=== PATIENT | female | born 1940 | race Caucasian/White ===

== ENCOUNTER 2020-03-02 07:50 | Inpatient (IN) | payer MEDICARE ==
[~2020-03-02] VITALS: Ht 167.6 cm; Wt 72.9 kg
[2020-03-02] MEDS ORDERED: LIVA2TAB PO (08:10)
[2020-03-02] MEDS ORDERED: SYMB80INH INH (08:10)
[2020-03-02] MEDS ORDERED: SPIR1CAP INH (08:10)
[2020-03-02] MEDS ORDERED: MONT5TAB2 PO (08:10)
[2020-03-02 08:47] LABS: BASO % 0.3 % (0.0-1.0); EOS # 0.1 10^3/uL (0.0-0.5); EOS % 0.7 % (0.0-3.0); HEMATOCRIT 47.3 % (36.0-47.0); HEMOGLOBIN 14.7 g/dl (12.0-15.5); LYMPH % 9.5 % (24.0-44.0); MEAN CORPUSCULAR HEMOGLOBIN 29.4 pg (27.0-33.0); MEAN CORPUSCULAR HGB CONC 31.1 g/dl (32.0-36.5); MEAN CORPUSCULAR VOLUME 94.6 fl (80.0-96.0); MONO # 0.8 10^3/uL (0.0-0.8); MONO % 8.2 % (0.0-5.0); NEUTROPHILS % 80.8 % (36.0-66.0); PLATELET COUNT, AUTOMATED 195 10^3/uL (150-450)
[2020-03-02] MEDS: OYSTER SHELL CALCIUM 500 MG TAB PO SCH (09:00)
[2020-03-02] MEDS: ENOXAPARIN 40MG/0.4ML SYRINGE (J1650 PER 10MG) SC SCH (09:00)
--- OUTSIDE RECORDS SUMMARY | 2020-03-02 09:13 | CCD ---
Author Author [facility] Address Unknown Phone Unavailable Support Name Relationship Address Phone RE Next Of Kin Unknown Unavailable Re-disclosure Warning The records that you are about to access may contain information from federally-assisted alcohol or drug abuse programs. If such information is present, then the following federally mandated warning applies: This information has been disclosed to you from records protected by federal confidentiality rules (42 CFR part 2). The federal rules prohibit you from making any further disclosure of this information unless further disclosure is expressly permitted by the written consent of the person to whom it pertains or as otherwise permitted by 42 CFR part 2. A general authorization for the release of medical or other information is NOT sufficient for this purpose. The Federal rules restrict any use of the information to criminally investigate or prosecute any alcohol or drug abuse patient.The records that you are about to access may contain highly sensitive health information, the redisclosure of which is protected by Article 27-F of the [facility] Public Health law. If you continue you may have access to information: Regarding HIV / AIDS; Provided by facilities licensed or operated by the [facility] Office of Mental Health; or Provided by the [facility] Office for People With Developmental Disabilities. If such information is present, then the following [facility] mandated warning applies: This information has been disclosed to you from confidential records which are protected by state law. State law prohibits you from making any further disclosure of this information without the specific written consent of the person to whom it pertains, or as otherwise permitted by law. Any unauthorized further disclosure in violation of state law may result in a fine or halfway sentence or both. A general authorization for the release of medical or other information is NOT sufficient authorization for further disc losure. Insurance Providers Payer name Policy type / Coverage type Policy ID Covered green party ID Covered green party's relationship to p[place] Policy [place] Plan Information MEDICARE BLUE O 306 [id number] SP [id number] [facility] OPTIONS [id number] SP [id number] MEDICARE [id number] SP [id number] B
[2020-03-02] MEDS ORDERED: ISOVUE-370 76% 100ML VIAL As Ordered ONE (09:18)
--- NOTE | 2020-03-02 09:42 | REPVR ---
PROCEDURE INFORMATION: Exam: CT Maxillofacial With Contrast Exam date and time: 03/02/2020 8:26 AM Age: 79 years old Clinical indication: Other: L ear/mastoid area red/hot/swollen TECHNIQUE: Imaging protocol: Computed tomography images of the face with intravenous contrast. Radiation optimization: All CT scans at this facility use at least one of these dose optimization techniques: automated exposure control; mA and/or kV adjustment per patient size (includes targeted exams where dose is matched to clinical indication); or iterative reconstruction. Contrast material: ISOVUE 370; Contrast volume: 75 ml; Contrast route: INTRAVENOUS (IV); COMPARISON: No relevant prior studies available. FINDINGS: Orbital cavity: Orbits are normal. Globes are unremarkable. Bones/joints: No acute fracture. Paranasal sinuses: Normal. No air-fluid levels. Mastoid air cells: Bilateral mastoid air cells are clear. Auditory system: External ear cavity and middle ear cavity are unremarkable. Ossicles are intact. Soft tissues: Asymmetrical enhancement and swelling of the left external pinna. Inflammation is extending up to the left parotid gland as described above. Brain: Intracranial contents are unremarkable. Submandibular/Parotid glands: Asymmetrical asymmetrical abnormal enhancement of the left parotid gland with mild surrounding inflammation and soft tissue swelling. IMPRESSION: Asymmetrical enhancement and swelling of the left external pinna. Inflammation is extending up to the left parotid gland as described above. Asymmetrical asymmetrical abnormal enhancement of the left parotid gland with mild surrounding inflammation and soft tissue swelling. Findings may represent inflammation of the external ear extending up to the parotid gland are parotiditis extending up to the left pinna. Clinical correlation is recommended. Electronically signed by: Mckayla Huitron On 03/02/2020 09:41:53 AM
[2020-03-02] MEDS ORDERED: dexameTHASONE 4 MG/ML 1ML VIAL (J1100 PER 1MG) As Ordered ONE ×2 (10:11→10:12)
[2020-03-02 10:12] LABS: ERYTHROCYTE SEDIMENTATION RATE 8 mm/hr (0-30)
[2020-03-02] MEDS ORDERED: UNASYN 3 GM VIAL As Ordered ONE (10:20)
[2020-03-02] MEDS ORDERED: cefTRIAXone SOD 1GM VIAL (J0696 PER 250MG) As Ordered ONE (10:28)
[2020-03-02] MEDS ORDERED: MUCI600T31 PO (11:27)
[2020-03-02] MEDS ORDERED: EQL50TAB2 PO (11:27)
[2020-03-02] MEDS ORDERED: VITA400C53 PO (11:27)
[2020-03-02] MEDS ORDERED: C 50TAB PO (11:27)
[2020-03-02] MEDS ORDERED: OYST1TAB PO (11:27)
[2020-03-02] MEDS ORDERED: MULT-40 PO (11:27)
[2020-03-02] MEDS ORDERED: ACETAMINOPHEN TAB 650MG DOSE (2X325MG) PO PRN (11:30)
--- OUTSIDE RECORDS SUMMARY | 2020-03-02 11:42 | CCD ---
Author Author [facility] Address Unknown Phone Unavailable Support Name [...] is protected by Article 27-F of the [facility] Public Health law. If you continue you may have access to information: Regarding HIV / AIDS; Provided by facilities licensed or operated by the [facility] Office of Mental Health; or Provided by the [facility] Office for People With Developmental Disabilities. If such information is present, then the following [facility] mandated warning applies: This information has [...] law may result in a fine or half-way sentence or both. A general authorization for the release of medical or other information is NOT sufficient authorization for further disc losure. Insurance Providers Payer name Policy type / Coverage type Policy ID Covered democrat ID Covered democrat's relationship to pittman Policy [place] Plan Information MEDICARE BLUE O 306 [id number] SP [id number] [facility] C[facility] OPTIONS [id number] SP [id number] MEDICARE [id number] SP [id number] B
[2020-03-02] MEDS ORDERED: guaiFENesin ER 600 MG TAB PO PRN (11:45)
--- NOTE | 2020-03-02 11:58 | HPEPDOC ---
General Date of Admission Mar 02, 2020 at 11:24 Date of Service: Mar 02, 2020 Chief Complaint The patient is a 79-year-old female admitted with a reason for visit of Cellulitis. Source: Patient Exam Limitations: No limitations Timing/Duration: 4-6 hours History of Present Illness Patient is 79 years old female with past history of COPD presented hospital with L ear redness and swelling. Patient stated that it's her 3d episode of left ear swelling. 2 previous one was in October and November patient received treatment with different antibiotics : meropenem, vancomycin, clindamycin, ceftriaxone with positive effect. Today patient woke up with ear swelling, she denied ear pain. She stated that she has itchiness around ear and hair loss for past few months In ER patient was found to have white blood count of 10, C-reactive protein 2.2. CT was done and showed Asymmetrical enhancement and swelling of the left external pinna. Inflammation is extending up to the left parotid gland as described above. Asymmetrical asymmetrical abnormal enhancement of the left parotid gland with mild surrounding inflammation and soft tissue swelling. Findings may represent inflammation of the external ear extending up to the parotid gland are parotiditis extending up to the left pinna. Patient denied any shortness of breath, fever or difficulty swallowing Home Medications Scheduled Ascorbic Acid (Vitamin C) 500 Mg Tablet, 500 MG PO DAILY, (Reported) Budesonide/Formoterol (Symbicort 80-4.5 Mcg Inhaler) 6.9 Gm Hfa.aer.ad, 2 PUFFS INH BID, (Reported) Calcium Carbonate (Calcium) 500 Mg Tablet, 500 MG PO DAILY, (Reported) Montelukast Sodium (Montelukast Sodium) 10 Mg Tablet, 10 MG PO QHS, (Reported) Multivitamin (Multivitamins) 1 Each Tablet, 1 TAB PO DAILY, (Reported) Pitavastatin Calcium (Livalo) 2 Mg Tablet, 2 MG PO QHS, (Reported) Tiotropium [place] (Spiriva) 18 Mcg Cap.w.dev, 18 MCG INH DAILY, (Reported) Vitamin B Complex (Vitamin B Complex) 1 Each Tablet, 1 TAB PO DAILY, (Reported) Vitamin E (Vitamin E) 400 Unit Capsule, 400 UNIT PO DAILY, (Reported) Scheduled PRN Guaifenesin (Mucinex) 600 Mg Tab.er.12h, 600 MG PO BID PRN for COUGH\, (Reported) Allergies Coded Allergies: Penicillins (Verified Allergy, Intermediate, Hives, 03/02/20) Past Medical History Medical History COPD Family History Father from cancer Mother from heart attack Social History * Smoker: former Smoker Alcohol: Denies Drugs: denies A-FIB/CHADSVASC A-FIB History Current/History of A-Fib/PAF?: No Current PO Anticoag Therapy: No Review of Systems Eyes: Denies: Pain ENT: Reports: Other Symptoms (left ear swelling) Skin: Denies: Rash, Jaundice Pulmonary: Denies: Dyspnea Gastrointestinal: Denies: Nausea, Vomiting Genitourinary: Denies: Frequency Hematologic: Denies: Bruising Endocrine: Denies: Polydipsia Musculoskeletal: Denies: Neck Pain Neurological: Denies: Weakness, Numbness Psych: Reports: Mood Normal Physical Examination General Exam: Positive: Alert, Cooperative Eye Exam: Positive: PERRLA ENT Exam: Positive: Atraumatic, Pinna Normal (left pinna swollen) Neck Exam: Negative: Supple, JVD Chest Exam: Positive: Clear to auscultation Heart Exam: Positive: Rate Normal Telemetry: Positive: No significant arrhythmia Abdomen Exam: Positive: Normal bowel sounds Extremity Exam: Negative: Clubbing, Cyanosis Skin Exam: Positive: Nl turgor and temperature Neuro Exam: Positive: Normal Gait, Strength at 5/5 X4 ext Psych Exam: Positive: Mental status NL Vital Signs Vital Signs Date Time Temp Pulse Resp B/P (MAP) Pulse Ox O2 Delivery O2 Flow Rate FiO2 03/02/20 10:54 99.5 03/02/20 08:24 03/02/20 07:51 92 18 95 Room Air Laboratory Data Labs 24H Laboratory Tests 2 03/02/20 08:34: Immature Granulocyte % (Auto) 0.5, Neutrophils (%) (Auto) 80.8H, Lymphocytes (%) (Auto) 9.5L, Monocytes (%) (Auto) 8.2H, Eosinophils (%) (Auto) 0.7, Basophils (%) (Auto) 0.3, Neutrophils # (Auto) 8.0, Lymphocytes # (Auto) 1.0L, Monocytes # (Auto) 0.8, Eosinophils # (Auto) 0.1, Basophils # (Auto) 0.0, Nucleated Red Blood Cells % (auto) 0.0, Erythrocyte Sedimentation Rate 8, C-Reactive Protein, Quantitative 2.21H 1/14/21 08:41: POC Glucose (Misc Panel) 107H, POC Sodium (Misc Panel) 141, POC Potassium (Misc Panel) 4.5, POC Chloride (Misc Panel) 101, POC Total CO2 (Misc Panel) 33.0H, POC Blood Urea Nitrogen (Misc Panel 17, POC Ionized Calcium (Misc Panel) 4.7, POC Creatinine (Misc Panel) 1.1, POC Hematocrit (Misc Panel) 47.0 CBC/BMP Laboratory Tests 03/02/20 08:34 Microbiology Microbiology 03/02/20 Blood Culture, Received Pending 03/02/20 Blood Culture, Received Pending 03/02/20 Respiratory Virus Panel (PCR) (SANDER), Received Pending Assessment/Plan Patient is 79 years old female with past history of COPD presented hospital with L ear redness and swelling. Patient stated that it's her 3d episode of left ear swelling. 2 previous one was in October and November patient received treatment with different antibiotics : meropenem, vancomycin, clindamycin, ceftr iaxone with positive effect. Today patient woke up with ear swelling, she denied ear pain. In ER patient was found to have white blood count of 10, C-reactive protein 2.2. CT was done and showed Asymmetrical enhancement and swelling of the left external pinna. Inflammation is extending up to the left parotid gland as described above. Asymmetrical asymmetrical abnormal enhancement of the left paro tid gland with mild surrounding inflammation and soft tissue swelling. Findings may represent inflammation of the external ear extending up to the parotid gland are parotiditis extending up to the left pinna. Patient denied any shortness of breath, fever or difficulty swallowing Problems (1) Cellulitis Status: Acute Problem Text: Left ear cellulitis Differential diagnoses includes bacterial infection versus fungal infection versus autoimmune diseases which is unlikely. Usually relapsing polychondritis bilateral I will start him empirically cefazolin IV Appreciate/agree with ID consult (2) COPD (chronic obstructive pulmonary disease) Status: Chronic Problem Text: No any acute exacerbation continue inhalers Plan / VTE VTE Prophylaxis Ordered?: Yes CHERELLE GU DO Mar 02, 2020 11:57
[2020-03-02] MEDS ORDERED: metroNIDAZOLE/NACL 500MG(5MG/ML) 100ML BAG (S0030) As Ordered ONE (11:59)
[2020-03-02] MEDS ORDERED: ceFAZolin SOD 1 GM in D5W MINI-BAG PLUS 50 ML IV SCH ×2 (14:00→17:00)
[2020-03-02 15:45] VITALS: BP 161/86
[2020-03-02] MEDS ORDERED: predniSONE 20 MG TAB PO ONE (17:00)
[2020-03-02] MEDS ORDERED: MONTELUKAST 10 MG TAB PO SCH (21:00)
[2020-03-02] MEDS ORDERED: SYMBICORT 80/4.5MCG INHALER 6GM INH SCH (21:00)
[2020-03-02] MEDS: SYMBICORT 80/4.5MCG INHALER 6GM INH SCH (21:22)
[2020-03-02 21:45] VITALS: BP 147/88
[2020-03-03 05:29] VITALS: BP 146/88
[2020-03-03 06:25] LABS: HEMATOCRIT 44.6 % (36.0-47.0); HEMOGLOBIN 13.8 g/dl (12.0-15.5); MEAN CORPUSCULAR HGB CONC 30.9 g/dl (32.0-36.5); MEAN CORPUSCULAR VOLUME 93.7 fl (80.0-96.0); PLATELET COUNT, AUTOMATED 212 10^3/uL (150-450); RED BLOOD COUNT 4.76 10^6/uL (4.00-5.40); WHITE BLOOD COUNT 13.4 10^3/uL (4.0-10.0)
[2020-03-03 06:52] LABS: RHEUMATOID FACTOR QUANT 13.6 IU/ML (<15.0)
[2020-03-03 06:55] LABS: ALBUMIN 3.3 GM/DL (3.2-5.2); BILIRUBIN,TOTAL 0.5 MG/DL (0.2-1.0); CALCIUM LEVEL 9.3 MG/DL (8.8-10.2); CREATININE FOR GFR 1.19 MG/DL (0.55-1.30); GLOMERULAR FILTRATION RATE 46.8 (>39); MAGNESIUM LEVEL 2.2 MG/DL (1.8-2.4); POTASSIUM SERUM 4.3 MEQ/L (3.5-5.1); TOTAL PROTEIN 6.8 GM/DL (6.4-8.2)
[2020-03-03] MEDS: SYMBICORT 80/4.5MCG INHALER 6GM INH SCH (07:53)
[2020-03-03] MEDS ORDERED: TIOTROPIUM INHALER/CAPSULE (SPIRIVA) INH SCH (08:00)
[2020-03-03] MEDS: ENOXAPARIN 40MG/0.4ML SYRINGE (J1650 PER 10MG) SC SCH (09:00)
[2020-03-03] MEDS: OYSTER SHELL CALCIUM 500 MG TAB PO SCH (09:21)
[2020-03-03 09:25] LABS: FREE T4 0.81 NG/DL (0.76-1.46); THYROID STIMULATING HORMONE 0.866 uIU/ML (0.358-3.740)
--- NOTE | 2020-03-03 12:10 | IPN ---
PROGRESS NOTE DATE: 03/03/2020 SUBJECTIVE: Sindhu is feeling good today. She has no complaints. No nausea, vomiting, or diarrhea. No fever or chills. No pain in her ear. She gives me a history of hair loss since this summer, itching of the scalp, rhinorrhea, and some sneezing. She denies ear pain or ear discharge. She never had a fever with these recurrent episodes. OBJECTIVE: VITAL SIGNS: Temperature is 97.9, pulse 76, respirations 18, blood pressure 146/88, O2 saturation 93% on room air. HEENT: Left ear pinna slightly erythematous and swollen, but less than yesterday. No tenderness. No discharge. Mild erythema of the cheek as well. Looking in the scope, there are a few patchy areas that are erythema. Macules possibly psoriatic. HEART: Normal S1, S2, no murmurs. LUNGS: Clear, diminished. ABDOMEN: Soft and nontender. EXTREMITIES: No edema. Left pinky finger contractures. LABORATORY DATA: White count 13.4 has increased from 10 due to steroids, hemoglobin 13.8, hematocrit 44.6, platelets 212,000. ESR 8. Sodium 138, potassium 4.3, chloride 104, bicarb 27, BUN 21, creatinine 1.19, glucose 133, calcium 9.3, magnesium 2.2, bilirubin 0.5, AST 26, ALT 27, alkaline phosphatase 63, total protein 6.8, albumin 3.3. Rheumatoid factor 13.6. CCP pending. DIONISIO pending. T3 of 129, T4 of 25 normal. 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 The patient received prednisone 40 mg yesterday with some decreased swelling. 2. Hair loss. Will add thyroid studies. PLAN ;I would just suggest 20 mg daily for five days and referral to rheumatology. Discharge patient home on no antibiotics and referral [facility]
[2020-03-03] MEDS ORDERED: PRED20TA PO (12:52)
--- NOTE | 2020-03-03 14:39 | CR ---
INFECTIOUS DISEASE CONSULTATION DATE: 03/02/2020 CONSULTATION REQUESTED BY: Lev Mireles DO REASON FOR CONSULTATION: Evaluation of recurrent left ear swelling and redness. HISTORY OF PRESENT ILLNESS: Mrs. Harding is a 79-year-old female who presented to [facility] in October, November and February for the same complaint. The patient developed left ear swelling and redness. She has minimal pain. It is usually associated with some itching. It does not respond to topical treatments, and therefore she comes to the Emergency Room. The first episode, she was in for 48 hours from October 19 to . She was treated with I.V. Vancomycin and Ceftazidime for presumptive malignant otitis externa. The patient had associated elevated white count, CRP and sed rate on other admissions. This is the third admission, she presented with swelling. She does not have significant pain, no drainage. She has no significant joint pain except for small finger has developed a contraction over the thumb area, which she relates to knitting and having that finger in the same position all the time. She denies any shortness of breath, cough, fever, chills, night sweats or other complaints. She had noticed some visual problems, her glasses were not working as well. The first admission she had erythema involving all the way to the cheek and the eyes as well. PAST MEDICAL HISTORY: Significant for COPD, she quit smoking in 2010, mild hyperlipidemia. ALLERGIES: Allergy to penicillin. FAMILY HISTORY: Father of cancer. Mother of heart attack. SOCIAL HISTORY: She quit smoking in 2010. She does not smoke or drink. REVIEW OF SYSTEMS: No fever, chills, night sweats. No cough or shortness of breath. No nausea, vomiting or diarrhea. No frequency or hematuria. No other joint pains except her fingers. Denies any respiratory issues, other than her chronic shortness of breath. MEDICATIONS: 1. Spiriva one inhalation daily. 2. Montelukast 10 mg p.o. q.h.s. 3. Symbicort two puffs inhaled b.i.d. 4. Chlorphenesin 600 mg b.i.d. p.r.n. 5. Tylenol p.r.n. 6. Cefazolin 1 gram I.V. every 8 hours. 7. Calcium carbonate 500 mg p.o. daily. 8. Enoxaparin 40 mg subcutaneously daily. PHYSICAL EXAMINATION: GENERAL: She is a healthy looking female, in no acute distress. VITAL SIGNS: Temperature 97.3, pulse 99, respirations 18, blood pressure 161/86, O2 sat 96% on room air. HEART: Normal S1, S2. No murmurs, rubs or gallops. LUNGS: Clear. No wheezes, rales or rhonchi. ABDOMEN: Soft, nontender. No hepatosplenomegaly. BACK: No CVA or lumbosacral tenderness. EXTREMITIES: No cyanosis, clubbing or edema. No calf tenderness. JOINTS: She has some [place] and Bouchards nodes on the second and third finger. Left pinky finger is contracted. She is not able to extend it, but nontender. HEENT: Oropharynx is clear with no thrush. Nose normal. Left ear pinna is erythematous, warm, not tender to touch, slightly torn pinna. No facial involvement. Sclerae slightly erythematous and slight swelling around the eyes. IMAGING STUDIES: Maxillofacial CT showed asymmetrical enhancement and swelling of the left external pinna, dissymmetric abnormal enhancement of the left parotid gland with no surrounding inflammation or swelling. IMPRESSION: This is a 79-year-old pleasant female with only history of COPD, who presents with a third episode of swollen left ear pinna with some itching. Each episode has lasted about 5 to 7 days. She was treated with antibiotics while she was in the hospital for cellulitis. I just hope this is relapsing polychondritis and not cellulitis. She never has an associated fever, drainage or pain. She does have elevated white count, CRP and sed rate usually. Sometimes relapsing polychondritis is associated with other autoimmune diseases, which will be ruled out, as well as myelodysplastic syndrome. PLAN: Discontinue I.V. Cefazolin. Prednisone 40 mg p.o. daily; see if that would help, then she could do on a tapering schedule. refer to rheumatology, obtain DIONISIO, rheumatoid factor, ANCA complement levels. This has been discussed with Dr. Mireles, who agrees with the plan. I do not see a need for her to be hospitalized. [facility]
--- NOTE | 2020-03-03 19:09 | DS.PDOC ---
Discharge Summary General Date of Admission Mar 02, 2020 at 11:24 Date of Discharge 03/03/20 Discharge Summary PROCEDURES PERFORMED DURING STAY: [None]. ADMITTING DIAGNOSES: COPD (chronic obstructive pulmonary disease) Cellulitis rule out DISCHARGE DIAGNOSES: Relapsing polychondritis COPD (chronic obstructive pulmonary disease) COMPLICATIONS/CHIEF COMPLAINT: Cellulitis. HISTORY OF PRESENT ILLNESS: : Mrs. Harding is a 79-year-old female who presented to [facility] in October, November and February for the same complaint. The patient developed left ear swelling and redness. She has minimal pain. It is usually associated with some itching. It does not respond to topical treatments, and therefore she comes to the Emergency Room. The first episode, she was in for 48 hours from October 19 to . She was treated with I.V. Vancomycin and Ceftazidime for presumptive malignant otitis externa. The patient had associated elevated white count, CRP and sed rate on other admissions. This is the third admission, she presented with swelling. She does not have significant pain, no drainage. She has no significant joint pain except for small finger has developed a contraction over the thumb area, which she relates to knitting and having that finger in the same position all the time. She denies any shortness of breath, cough, fever, chills, night sweats or other complaints. She had noticed some visual problems, her glasses were not working as well. The first admission she had erythema involving all the way to the cheek and the eyes as well. HOSPITAL COURSE: During hospital stay the following issues addressed Patient was diagnosed with relapsing perichondritis, received steroids with positive effect DISCHARGE MEDICATIONS: Please see below. ALLERGIES: Please see below. PHYSICAL EXAMINATION ON DISCHARGE: VITAL SIGNS: Please see below. VITAL SIGNS: Temperature 97.3, pulse 99, respirations 18, blood pressure 161/86, O2 sat 96% on room air. HEART: Normal S1, S2. No murmurs, rubs or gallops. LUNGS: Clear. No wheezes, rales or rhonchi. ABDOMEN: Soft, nontender. No hepatosplenomegaly. BACK: No CVA or lumbosacral tenderness. EXTREMITIES: No cyanosis, clubbing or edema. No calf tenderness. JOINTS: She has some ____edema and push out nodes on the second and third finger. Left pinky finger is contracted. She is not able to extend it, but nontender. HEENT: Oropharynx is clear with no thrush. Nose normal. Left ear pinna is erythematous, warm, not tender to touch, slightly torn pinna. No facial involvement. Sclerae slightly erythematous and slight swelling around the eyes. LABORATORY DATA: Please see below. IMAGING:: Maxillofacial CT showed dissymmetrical enhancement and swelling of the left external pinna, dissymmetric abnormal enhancement of the left parotid gland with no surrounding inflammation or swelling. PROGNOSIS: Fair ACTIVITY: [As tolerated]. DIET: Cardiac DISPOSITION: 01 Home, Self-Care. ITEMS TO FOLLOWUP ON ON OUTPATIENT: Follow-up with electrical automation engineer in 3-5 days DISCHARGE CONDITION: [Stable]. TIME SPENT ON DISCHARGE: Greater than 20 minutes. Vital Signs/I&Os Vital Signs Date Time Temp Pulse Resp B/P (MAP) Pulse Ox O2 Delivery O2 Flow Rate FiO2 03/03/20 05:29 97.9 76 18 146/88 (107) 93 Room Air I&O- Last 24 Hours up to 6 AM 03/03/20 05:59 Intake Total 1200 ml Output Total 1600 ml Balance -400 ml Laboratory Data Labs 24H Laboratory Tests 2 03/03/20 05:37: Nucleated Red Blood Cells % (auto) 0.0, Anion Gap 7L, Glomerular Filtration Rate 46.8, Calcium Level 9.3, Magnesium Level 2.2, Total Bilirubin 0.5, Aspartate Amino Transf (AST/SGOT) 26, Alanine Aminotransferase (ALT/SGPT) 27, Alkaline Phosphatase 63, Total Protein 6.8, Albumin 3.3, Albumin/Globulin Ratio 0.9L, Thyroid Stimulating Hormone (TSH) 0.866, Free Thyroxine 0.81, Rheumatoid Factor 13.6, Complement C3 129, Complement C4 25 03/03/20 10:17: Lab Scanned Report Miscellaneous Lab CBC/BMP Laboratory Tests 03/03/20 05:37 Microbiology Microbiology 03/02/20 Blood Culture - Preliminary, Resulted No growth after 24 hours . All specim... 03/02/20 Blood Culture - Preliminary, Resulted No growth after 24 hours . All specim... 03/02/20 Respiratory Virus Panel (PCR) (SANDER) - Final, Complete Discharge Medications Scheduled Ascorbic Acid (Vitamin C) 500 Mg Tablet, 500 MG PO DAILY, (Reported) Budesonide/Formoterol (Symbicort 80-4.5 Mcg Inhaler) 6.9 Gm Hfa.aer.ad, 2 PUFFS INH BID, (Reported) Calcium Carbonate (Calcium) 500 Mg Tablet, 500 MG PO DAILY, (Reported) Montelukast Sodium (Montelukast Sodium) 10 Mg Tablet, 10 MG PO QHS, (Reported) Multivitamin (Multivitamins) 1 Each Tablet, 1 TAB PO DAILY, (Reported) Pitavastatin Calcium (Livalo) 2 Mg Tablet, 2 MG PO QHS, (Reported) Prednisone (Prednisone) 20 Mg Tablet, 20 MG PO DAILY Tiotropium [place] (Spiriva) 18 Mcg Cap.w.dev, 18 MCG INH DAILY, (Reported) Vitamin B Complex (Vitamin B Complex) 1 Each Tablet, 1 TAB PO DAILY, (Reported) Vitamin E (Vitamin E) 400 Unit Capsule, 400 UNIT PO DAILY, (Reported) Scheduled PRN Guaifenesin (Mucinex) 600 Mg Tab.er.12h, 600 MG PO BID PRN for COUGH\, (Reported) Allergies Coded Allergies: Penicillins (Verified Allergy, Intermediate, Hives, 03/02/20) CHERELLE GU DO Mar 03, 2020 19:09
[2020-03-03 23:07] LABS: ANA (HEP2) Negative (.)
== END 2020-03-03 14:30 | disposition home or self-care (01) | DRG 566 ==
LOC: M ED 07:50 → M ED INP 11:24 → M MS5PR 15:50
PROVIDERS: ADMIT Internal Medicine; ATTEND Internal Medicine
DX: M94.1 Relapsing polychondritis (principal); J44.9 Chronic obstructive pulmonary disease, unspecified; Z79.899 Other long term (current) drug therapy; Z88.0 Allergy status to penicillin